=== PATIENT | male | born 1960 | race Two or more races ===

== ENCOUNTER 2018-07-16 20:19 | Outpatient (AMB) | payer BC, SELFPAY ==
[2018-07-16 20:27] VITALS: BP 124/81; PULSE 96; RESP 20; TEMP 37.3; O2SAT 100; BMI 26.1
--- NOTE | 2018-07-16 20:31 | URCARE_ITS ---
Intake Ht./Wt. Decline/Exclusions Patient Declined Height and Weight this visit: No PT Meets exclusion criteria: No Vital Signs 07/16/18 20:27 Height Method Measured Weight Measurement Method Standing Scale BMI 26.1 Temp 99.1 F Temp Source Temporal Artery Scan Pulse 96 Pulse Source Monitor Respiration 20 BP 124/81 Blood Pressure Source Automatic Cuff Blood Pressure Location Right Upper Arm Position Sitting Pulse Oximetry (%) 100 Oxygen Delivery Method Room Air Intake Zika Travel: No Been in contact w/anyone who has been Dx w/Zika Virus: No Been in contact w/anyone sick during travel outside country: No Patient >or equal to 18 years BMI outside of range 18.5-24.9: Yes Visit Reasons: UC Foot pain Is patient in pain?: Yes Pain Location:: left foot Pena-Lauren/Numerical: 10 Pain Scale Used: Numeric (1 - 10) Triage Triage Allergy / Med Rec Allergies No Known Allergies Allergy (Verified 07/16/18 20:59) Band Placement: Patient Identification DOLORES: [id number] Arrival Mode of Arrival: Private Vehicle Method of Arrival: Ambulatory Accompanied By: Self PCP or OBGYN visit in last 3 months: Yes Language Preferred Language: [place] Route Sales Specialist Required: No Social History Alcohol / Drugs Hx Alcohol Use: No Hx Substance Use: No Safety Do You Feel Safe at Home: Yes Authorities Contacted: N/A Lyman Fall Scale Special Populations Patient Comatose, Paralyzed or Immobile: No Patient Under the Age of 44 Years Old: No Assessment History of falling; immediate or within 3 months: No Secondary diagnosis: No Ambulatory aid: None IV Infusion: No Gait/Transferring: Normal/bedrest/immobile Mental Status: Oriented to own ability Score Score: 0 Risk Level/Action Risk Level: Low Risk Action: Good Basic Nursing Care Fall Star Level 1 Fall Star Level 1: Yes Patient Education Topic Education Topics: Discharge Instructions and Plan of Care Teaching Recipient: Patient Readiness, Motivation to Learn: Active Methods: Verbal instruction and Hand Out Educ Materials Suggested by INFO Button/Rx Monograph Given: No Response: Verbalize Understanding Route Sales Specialist Required: No Population Health PMH Hx Congestive Heart Failure: No Hx Diabetes Mellitus Type 1: No Hx Diabetes Mellitus Type 2: Yes Hx Renal Disease: No Hx Chronic Obstructive Pulmonary Disease (COPD): No Past Medical History Reviewed and agree with Nursing documentation.: Yes Past Medical History History Provided By: Patient Cardiac Medical History Hx Congestive Heart Failure: No Endocrine Medical History Hx Diabetes Mellitus Type 1: No Hx Diabetes Mellitus Type 2: Yes Genitourinary Medical History Hx Renal Disease: No Respiratory Medical History Hx COPD: No HPI Foot/Ankle Pain This is a 58-year-old male who presents the urgent care with family complaining of redness and pain to the left heel for the last 5 days. He states he has dry cracking skin to his heel and the skin cracked open and now the area is red and painful. He denies any bleeding or discharge. He denies any fever chills nausea vomiting or diarrhea. Involved foot/ankle: left Location of pain: heel Review of Systems (UC) Review of Systems All systems reviewed & no additional complaints except as documented Const Constitutional: Reports system reviewed and no additional complaints, except as documented Skin/Breast Skin/Breast: Reports as per HPI Exam (UC) Limitations: no limitations General Appearance: alert, in no apparent distress, comfortable, cooperative, healthy appearing, well developed and well groomed Head exam: atraumatic, normocephalic and normal inspection Eye exam: Reports normal appearance and Reports EOMI ENT exam: Present normal exam Neck Exam: Present normal inspection Chest/Breast Exam: Present normal inspection SPO2%: 100% SPO2 type: Room Air SPO2% Normal/Abnormal: Normal Respiratory exam: Present normal lung sounds bilaterally, normal respiratory effort, able to speak in complete sentences and clear to ascultation bilaterally Cardiovascular exam: Present regular rate and regular rhythm Extremities exam: normal inspection Left Foot/toe: Bottom foot image: 1. LEFT HEEL: Dry cracked skin to the heel. Small wound noted to the heel. There is some mild erythema and slight lymphatic streaking up the heel. No bleeding or discharge. No obvious abscess. Mild tenderness to palpation. Able to walk without limp or assistance. Back exam: Present normal inspection Neurological Exam: Present alert, awake and oriented X3 Psychiatric exam: Present normal affect and normal mood Skin exam: Present warm, dry, intact and normal color Office Procedures UC ceftriaxone 1 gram solution for injection with Lidocaine Medication Given Medication Given: Yes Documented Dose Given: 1,000 Route: IM UC Level of Care Nursing/Assessment/Reassessment Patient Status: Established Patient Nursing Assessment/Reassessment: Triage Asessment, Initial Vital Signs and RN General Assessments Coordination of Care: DC Instructions Simple Established Patient Charge Established Patient Point Assignment: 40 Established Patient Point Assignment: EP Level 2 (40-75) Procedures: Pulse Ox reading: Yes SQ Im Injection: Yes UC Beside Glucose: Yes Office Meds Xylocaine Performing Provider: Atul Aponte PA-C Administered by: BRICE DSOUZA on 07/16/18 21:00 Dose Route Admin Location Lot Number Expiration Date [place] [employer] 21 mg IM ceftriaxone Performing Provider: Atul Aponte PA-C Administered by: BRICE DSOUZA on 07/16/18 21:00 Dose Route Admin Location Lot Number Expiration Date [place] [employer] 1 g IM Supplemental Info MDM: Patient appears to be a poorly controlled diabetic. Blood sugar 445 mg/dL tonight at urgent care. We will treat the patient with antibiotics tonight and he will follow-up with his primary care physician on Wednesday for his diabetes. He states his PMD recently changed his medications and he will discuss this with his PMD on Wednesday. Strict ER precautions have been discussed with the patient and he has verbalized understanding. Assessment and Plan Assessment & Plan (1) Cellulitis of left heel: Plan Details Other Medications: New: acetaminophen ER swallow whole; do not crush, chew, break, dissolve, cut, or open 650 mg PO Q8H PRN 30 tabs 0RF fever or pain cephalexin (Keflex) 500 mg PO Q6H 10 days 40 caps 0RF ibuprofen prn pain / fever 600 mg PO Q8H PRN 30 tabs 0RF fever or pain Discontinued: Xylocaine (lidocaine HCl) Discontinued Reason: Office Medication has been Documented as given 21 mg (2.1 mL) IM ONCE 2.1 mL 0RF NS ceftriaxone Discontinued Reason: Office Medication has been Documented as given 1 g IM ONCE 1 ea 0RF Other Orders: Orders: UC ceftriaxone 1 gram solution for injection with Lidocaine Today Urgent Care POC Glucose Today Additional Comments: Follow up with your doctor in 3-5 days for recheck and reevaluation. Take any / all medication(s) as directed. If worse, not improving, or any concerns go im mediately to the EMERGENCY ROOM. DISCHARGE NOTE: I emphasized the need for follow-up with their primary care provider. Failure to follow-up could result in a poor outcome or failure of treatment altogether. If the patient is unable to follow-up with their primary care provider, they are to go to the Emergency Department if their symptoms persist or worsen. I have reviewed the discharge treatment plan and follow-up instructions with the patient and/or patient representatives, addressed any concerns, and answered any and all questions. They have verbalized understanding of the discharge treatment plan. Follow Up: 3 Days Instructions: ED Infec Skin Cellulitis Additional Information PA/RANCH MANAGER Supervising Physician: Rafa Guy DC Evaluation Discharge Information Seen, Treated and Released by Provider: No Left Prior to Receiving Discharge Instructions: No Transfer to Outside Facility: No Vital Signs Vitals Signs N/A: Yes Pain Pain Medication / Other Intervention Provided: No Medication Medication Given this Visit: Yes Reaction to Medication: No Discharge Information Condition on Discharge: Stable Mode of Discharge: Ambulatory Discharge Transportation: Private Vehicle Instructions Route Sales Specialist Required: No Discharge Instructions Given To: Patient Was Follow up Care Ordered: Yes Verbalizes Understanding of Discharge Instructions: Yes [facility] information card provided?: Yes Patient plan follow up w/PCP for [facility]: No
== END 2018-07-16 20:52 | disposition home or self-care (01) ==
PROVIDERS: PCP Family Medicine; Referring Provider Physician Assistant; Visit Provider Physician Assistant
DX: I10 Essential (primary) hypertension (principal)

== ENCOUNTER → 2024-04-07 | Outpatient (CLI) | payer MEDICARE, MEDICAID, SELFPAY ==
[2024-04-07 08:13] LABS: Collection Type, Urine Clean Catch; RBC,Urine 0 /hpf (0-3); Squamous Epithelial Cell,Urine 0 /hpf (0-5)
[2024-04-07 08:31] LABS: Basophils # (Auto) 0.1 Thou/mm3 (0.0-0.2); Basophils % (Auto) 1 % (0-2.5); Eosinophils # (Auto) 0.5 Thou/mm3 (0.0-0.5); Eosinophils % (Auto) 6 % (0-10); Hematocrit 32.8 % (41.0-53.0); Hemoglobin 10.3 g/dL (13.5-16.0); Immature Granulocytes % (Auto) 0 % (0-0); Immature Granulocytes Auto 0.02 Thou/mm3 (0.00-0.00); Lymphocytes % (Auto) 45 % (10-50); Mean Corpuscular HGB Conc 31.4 g/dl (31.0-37.0); Mean Corpuscular Hemoglobin 28.9 pg (25.0-35.0); Mean Corpuscular Volume 92 fL (80-100); Monocytes # (Auto) 0.4 Thou/mm3 (0.0-0.8); Monocytes % (Auto) 5 % (0-12); Neutrophils # (Auto) 3.9 Thou/mm3 (1.8-7.7); Neutrophils % (Auto) 44 % (37-80); Nucleated Red Blood Cell % 0 /100 WBC (0); Platelet Count 196 Thou/mm3 (140-440); Red Blood Count 3.57 Miln/mm3 (4.50-5.90); White Blood Count 8.9 Thou/mm3 (3.8-10.6)
[2024-04-07 08:36] LABS: Bilirubin,Urine Negative (Negative); Blood,Urine Negative (Negative); Clarity,Urine Clear (Clear/Hazy); Color,Urine Lt-Yellow (Lt Yel-Yel); Glucose, Urine 4+ (Negative); Ketones,Urine Negative (Negative); Leukocyte Esterase,Urine Negative (Negative); Nitrite,Urine Negative (Negative); Protein,Urine Negative (Neg - Trace); Specific Gravity,Urine 1.021 (1.001-1.035); Urobilinogen,Urine Negative mg/dL (0.0-1.0); WBC,Urine < 1 /hpf (0-5)
[2024-04-07 08:57] LABS: Creatinine MALB Rnd Ur 49 mg/dL (30-125); Microalbumin Creat Ratio 6 mg/gCrea (<30); Microalbumin, Random Urine 3 mg/L (0-300)
[2024-04-07 09:02] LABS: Albumin, Serum 4.3 gm/dL (3.4-4.8); Anion Gap 8 (7-16); BUN/Creatinine Ratio 33 Ratio (12-20); Blood Urea Nitrogen 50 mg/dL (9-23); Calcium 9.6 mg/dL (8.3-10.6); Calcium (Corrected) 9.6 mg/dL (8.5-10.1); Carbon Dioxide 23.1 mMol/L (20.0-31.0); Chloride 109 mMol/L (98-107); Creatinine (Component) 1.5 mg/dL (0.6-1.3); Glucose 157 mg/dL (74-106); Osmolality,Calculated 295 (275-295); Phosphorous 4.2 mg/dL (2.4-5.1); Potassium 4.3 mMol/L (3.4-5.1); Sodium 140 mMol/L (136-145); eGFR 51 See Note
[2024-04-07 09:03] LABS: Vitamin D 25 Hydroxy Total 39.3 ng/mL (7.3-40.2)
[2024-04-07 09:55] LABS: Parathyroid Hormone Intact 101.5 pg/ml (18.5-88.0)
[2024-04-07 16:07] LABS: Glucose Estimated Average 146 mg/dL (80-131); Hemoglobin A1C 6.7 % Hgb (4.8-6.0)
== END | disposition home or self-care (01) ==
LOC: COPL 07:37
PROVIDERS: PCP Internal Medicine; Referring Provider Internal Medicine; Visit Provider Nurse Practitioner Family
DX: N18.30 Chronic kidney disease, stage 3 unspecified (principal); I10 Essential (primary) hypertension; E78.5 Hyperlipidemia, unspecified; E11.9 Type 2 diabetes mellitus without complications
CPT/HCPCS: 36415; 80069; 81001; 82043; 82306; 82570; 83036; 83970; 85025

== ENCOUNTER → 2024-04-11 | Outpatient (CLI) | payer MEDICARE, MEDICAID, SELFPAY ==
--- NOTE | 2024-04-11 16:30 | XR_ITS ---
Examination: Retroperitoneal ultrasound, complete Technique: Multiple high resolution grayscale images of the retroperitoneum obtained, including kidneys and bladder. Exam date and time:April 11, 2024 1629 hours INDICATIONS: Acute renal insufficiency diagnosis on left are examination a few weeks ago. FINDINGS: Right kidney 10.1 x 5.8 x 6.0 cm renal cortex 1.4 cm Left kidney 11.3 x 5.3 x 4.7 cm renal cortex 1.7 cm Moderate bilateral renal parenchymal scar formation Lateral right renal cyst 22 mm medial left renal cyst 11 mm No hydronephrosis No bladder mass or bladder calculi Bladder prevoid volume 385 cc postvoid volume 204 cc Prostate volume 37 cc no prostate nodules IMPRESSION: Bilateral renal cortical thinning Moderate bilateral renal parenchymal scar formation No hydronephrosis
== END | disposition home or self-care (01) ==
LOC: CDIM 16:14
PROVIDERS: PCP Nurse Practitioner Family; Referring Provider Internal Medicine; Visit Provider Internal Medicine
DX: N28.89 Other specified disorders of kidney and ureter (principal)
CPT/HCPCS: 76770

== ENCOUNTER → 2024-06-05 | Outpatient (CLI) | payer MEDICARE, MEDICAID, SELFPAY ==
--- NOTE | 2024-06-05 09:22 | EKG_ITS ---
[facility] (Formerly [facility]) Test Date: 2024-06-05 Pat Name: HELENA PADILLA Department: Room: - Gender: Male Construction Director: ROXI : 1960 Requested By: Miya Tellez Order Number: [id number] Reading MD: Miya Tellez Measurements Intervals [place] Rate: 77 P: 49 TN: 188 QRS: 60 QRSD: 117 T: 184 QT: 386 QTc: 437 Interpretive Statements SINUS RHYTHM SEPTAL MYOCARDIAL INFARCTION , OF INDETERMINATE AGE MODERATE T-WAVE ABNORMALITY, CONSIDER LATERAL ISCHEMIA MODERATE T-WAVE ABNORMALITY, CONSIDER INFERIOR ISCHEMIA Compared to ECG 11/19/2023 08:48:44 Myocardial infarct finding now present Possible ischemia now present Intraventricular conduction delay no longer present T-wave abnormality still present /store/S0/[id number]
[2024-06-05 11:14] LABS: Basophils # (Auto) 0.1 Thou/mm3 (0.0-0.2); Basophils % (Auto) 1 % (0-2.5); Eosinophils # (Auto) 0.6 Thou/mm3 (0.0-0.5); Eosinophils % (Auto) 5 % (0-10); Hematocrit 39.8 % (41.0-53.0); Immature Granulocytes % (Auto) 0 % (0-0); Immature Granulocytes Auto 0.02 Thou/mm3 (0.00-0.00); Lymphocytes # (Auto) 5.2 Thou/mm3 (1.0-4.8); Lymphocytes % (Auto) 45 % (10-50); Mean Corpuscular HGB Conc 32.7 g/dl (31.0-37.0); Mean Corpuscular Hemoglobin 29.8 pg (25.0-35.0); Mean Corpuscular Volume 91 fL (80-100); Monocytes # (Auto) 0.7 Thou/mm3 (0.0-0.8); Monocytes % (Auto) 6 % (0-12); Neutrophils # (Auto) 5.1 Thou/mm3 (1.8-7.7); Neutrophils % (Auto) 43 % (37-80); Nucleated Red Blood Cell % 0 /100 WBC (0); Platelet Count 162 Thou/mm3 (140-440); RDW Standard Deviation 51.7 fL (35.1-43.9); Red Blood Count 4.36 Miln/mm3 (4.50-5.90); White Blood Count 11.8 Thou/mm3 (3.8-10.6)
[2024-06-05 11:21] LABS: INR 1.1 (0.9-1.3); Partial Thromboplastin Time 25.5 Seconds (22.0-36.0); Prothrombin Time 11.8 Seconds (9.0-12.2)
[2024-06-05 11:23] LABS: Alanine Aminotransferase 40 U/L (10-49); Albumin, Serum 4.5 gm/dL (3.4-4.8); Albumin/Globulin Ratio 1.4 (1.2-2.2); Alkaline Phosphatase 112 U/L (46-116); Anion Gap 10 (7-16); Aspartate Amino Transferase 34 U/L (0-34); BUN/Creatinine Ratio 25 Ratio (12-20); Bilirubin,Total 0.8 mg/dL (0.3-1.2); Blood Urea Nitrogen 49 mg/dL (9-23); Calcium 9.5 mg/dL (8.3-10.6); Calcium (Corrected) 9.5 mg/dL (8.5-10.1); Carbon Dioxide 23.5 mMol/L (20.0-31.0); Chloride 106 mMol/L (98-107); Globulin 3.3 gm/dL (2.3-3.5); Glucose 243 mg/dL (74-106); Osmolality,Calculated 298 (275-295); Potassium 4.1 mMol/L (3.4-5.1); Sodium 139 mMol/L (136-145); Total Protein 7.8 gm/dL (5.7-8.2); eGFR 36 See Note
== END | disposition home or self-care (01) ==
LOC: SEKG 08:54
PROVIDERS: PCP Nurse Practitioner Family; Referring Provider Student in an Organized Health Care Education/Training Program; Visit Provider Student in an Organized Health Care Education/Training Program
DX: Z01.818 Encounter for other preprocedural examination (principal); I73.9 Peripheral vascular disease, unspecified; Z79.01 Long term (current) use of anticoagulants
CPT/HCPCS: 36415; 80053; 85025; 85610; 85730; 93005